=== PATIENT | female | born 1965 ===

== ENCOUNTER 2019-01-21 11:11 | Emergency (ER) | payer BC ==
--- NOTE | 2019-01-21 11:18 | UC ---
Laceration HPI - HPI Summary HPI Summary: 53 yo female presents with right hand laceration. She tells me that she was cooking ham with pineapples and reached into the pineapple tin can to get a pineapple out and sliced her right hand on the can. Bandaged the area and came to . Unsure date of last tetanus. - History Of Current Complaint Stated Complaint: HAND LACERATION Time Seen by Provider: 01/21/19 11:18 Hx Obtained From: Patient Laceration Location: Hand Mechanism Of Injury: Sharp Trauma Onset/Duration: Sudden Onset Severity: Mild Pain Intensity: 1 Pain Scale Used: 0-10 Numeric - Allergies/Home Medications Allergies/Adverse Reactions: Allergies Allergy/AdvReac Type Severity Reaction Status Date / Time No Known Allergies Allergy Verified 01/21/19 11:36 Home Medications: Home Medications Levothyroxine Sodium [Synthroid] 112 mcg PO DAILY 01/21/19 [History Confirmed ] PMH/Surg Hx/FS Hx/Imm Hx Endocrine History: Hypothyroidism - Family History Known Family History: Positive: None - Social History Occupation: Employed Full-time Lives: With Family Alcohol Use: Occasionally Substance Use Type: None Smoking Status (MU): Former Smoker Review of Systems All Other Systems Reviewed And Are Negative: Yes Constitutional: Positive: Negative Skin: Positive: Other - Right hand laceration Respiratory: Positive: Negative Cardiovascular: Positive: Negative Musculoskeletal: Positive: Negative Neurological: Positive: Negative Psychological: Positive: Negative Physical Exam - Summary Physical Exam Summary: GENERAL: NAD. WDWN. No pain distress. SKIN: RIGHT HAND: at the radial aspect of the index MCP there is a 1.0cm linear superficial laceration well approximated at rest. Clean wound without fb. No active bleeding. CHEST: No accessory muscle use. Breathing comfortably and in no distress. CV: Pulses intact. Cap refill <2seconds NEURO: Alert. PSYCH: Age appropriate behavior. Triage Information Reviewed: Yes Vital Signs: Vital Signs: Temp Pulse Resp BP Pulse Ox 99.3 F 71 18 130/76 95 01/21/19 11:25 01/21/19 11:25 01/21/19 11:25 01/21/19 11:25 01/21/19 11:25 Vital Signs Reviewed: Yes Laceration Repair - Laceration Repair 1 Description: Linear Laceration Size After Repair: Length (cm) - 1.0 Irrigation With Pressure Irrigation Device: Yes Closure Material: Skin Adhesive Laceration Course/Dx - Course/Dx Course Of Treatment: The wound was cleansed with NS. Wound in good approximation at rest and did not open during movement, therefore dermabond was applied. Bandaged with a band- aid. tdap updated today. - Diagnosis Provider Diagnosis: Laceration of right hand Discharge - Sign-Out/Discharge Documenting (check all that apply): Patient Departure All imaging exams completed and their final reports reviewed: No Studies - Discharge Plan Condition: Stable Disposition: HOME Patient Education Materials: Skin Adhesive Care (ED) Referrals: Harjinder Montgomery MD [Primary Care Provider] - Additional Instructions: If you develop a fever, shortness of breath, chest pain, new or worsening symptoms - please call your PCP or go to the ED. Apply a band-aid until well healed - Billing Disposition and Condition Condition: STABLE Disposition: Home
[2019-01-21] MEDS ORDERED: Tetan/Diph/Pertus SYR(Tdap)* 0.5 ML SYR(BOOSTRIX) use SYR IM ONE (11:34)
== END 2019-01-21 11:45 | disposition home or self-care (01) ==
LOC: UCEAST 11:11
DX: S61.411A Laceration without foreign body of right hand, initial encounter (principal); W26.8XXA Contact with other sharp object(s), not elsewhere classified, initial encounter; Y93.G3 Activity, cooking and baking; Y92.9 Unspecified place or not applicable; Z23 Encounter for immunization; E03.9 Hypothyroidism, unspecified; Z87.891 Personal history of nicotine dependence
CPT/HCPCS: 12001; 90471; 90715; 99201; G0463